=== PATIENT | female | born 1960 | race Caucasian/White ===

== ENCOUNTER 2024-06-24 13:30 | Outpatient (RCR) | payer MEDICAID, SELFPAY ==
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
--- NOTE | 2024-06-13 09:11 | PT.ODAYNRPT ---
PT Outpatient Daily Note OP Daily Note Outpatient Physical Therapy Treatment Date: 06/13/24 Visit Reasons: Pain in RT shoulder Subjective: Pt received a cortisone shot on the shoulder and pain feels better. Pt wants to get better. Objective: Please see flow chart for list of ther ex performed Assessment: progressing with shoulder AAROM flexion and abduction with less pain Plan: Continue with PT Length of Time (minutes) of Treatment: 30 Minutes Procedure Charges Therapeutic Exercise 30 minutes: Yes
--- NOTE | 2024-06-17 08:53 | PT.ODAYNRPT ---
PT Outpatient Daily Note OP Daily Note Outpatient Physical Therapy Treatment Date: 06/17/24 Visit Reasons: Pain in RT shoulder Subjective: Pt's shoulder feels much better, however, still wants to shoot for an MRI. Pt mentioned she can reach overhead with less pain. Objective: Please see flow chart for list of ther ex performed Assessment: progressing with shoulder AROM, however, continues to demonstrate pain past shoulder height with exercises Plan: Continue with PT Length of Time (minutes) of Treatment: 30 Minutes Procedure Charges Therapeutic Exercise 30 minutes: Yes
--- NOTE | 2024-06-20 08:37 | PT.ODAYNRPT ---
PT Outpatient Daily Note OP Daily Note Outpatient Physical Therapy Treatment Date: 06/20/24 Visit Reasons: Pain in RT shoulder Subjective: Pt's shoulder feels better. Pt mentioned cortisone and physical therapy is helping. Objective: Please see flow chart for list of ther ex performed Assessment: progressing with shoulder flexion and scaption AAROM with less pain. Cues to correct shoulder 3 way to improved form Plan: Continue with PT Length of Time (minutes) of Treatment: 30 Minutes Procedure Charges Therapeutic Exercise 30 minutes: Yes
--- NOTE | 2024-06-24 14:55 | PT.ODAYNRPT ---
PT Outpatient Daily Note OP Daily Note Outpatient Physical Therapy Treatment Date: 06/24/24 Visit Reasons: Pain in RT shoulder Subjective: Pt reports pain in shoulder is lessened but feel flexibility slowly progressing. Objective: Please see flow sheet for ther ex list. Assessment: Continued focus on restoring ROM and strength. Plan: Continue with poC. Length of Time (minutes) of Treatment: 30 Minutes Procedure Charges Therapeutic Exercise 30 minutes: Yes
--- NOTE | 2024-07-16 11:02 | PT.ODS1RPT ---
PT OP Progress/Discharge Note Date of Service: 07/16/24 Progress Note/DC Note Progress Note/Discharge Note: DC Note Patient Information Visit Reasons: Pain in RT shoulder Service Discharge Date: 07/16/24 Status Assessment: Pt called to cx all pending PT appt. Pt's shoulder feels much better. Pt d/c per Pt's request; thank you for your referrals.
== END 2024-07-05 23:59 | disposition home or self-care (01) ==
LOC: CPTX 13:30
PROVIDERS: PCP Nurse Practitioner Family; Referring Provider Nurse Practitioner Family; Visit Provider Nurse Practitioner Family
DX: M25.511 Pain in right shoulder (principal); G89.29 Other chronic pain; Z71.6 Tobacco abuse counseling; F17.210 Nicotine dependence, cigarettes, uncomplicated
CPT/HCPCS: 97110; 97162